=== PATIENT | male | born 1955 | race Caucasian/White ===

== ENCOUNTER 2018-01-16 07:53 | Day surgery (SDC) | payer OTHER, SELFPAY ==
--- NOTE | 2018-01-16 | IMM_PTH ---
PATIENT: MAUREEN KWON LOC: EN U#:[id number] AGE/SX: 62/M ROOM: RE01/16/[address]: Dr. Ananth Cho MD : 1955 BED: DIS: 01/16/2018 SPEC #: [id number] RECD: 01/17/18 14:27 STATUS: KAMILLA REKiya #: [id number] FERDINAND: 01/16/18 00:[address]: Ananth Cho DEPT: IMMUNOHISTOCHEMISTRY RECD BY: Celsa Sepulveda ENTERED: 01/17/18 14:28 SP TYPE: IMMUNO OTHR DR: Tyshawn Pak, JOB TRACER-C Tissues: A - Stomach, NOS Procedures: H Pylori (initial) PHYSICIAN & INSTITUTION [place] [address] SPECIMEN INFORMATION: Tissue Source: A - Antral biopsy Clinical Info: Tapia's Specimen Number: [id number] CPT code: 39806 METHODOLOGY: Deparaffinized sections of prefer/formalin-fixed tissue or PAP/DQ stained slides are incubated with monoclonal/polyclonal antibodies/oligonucleotide probes. Localization is made via biotin free immunoperoxidase method. Appropriate controls are performed and reacted as expected. Results on target cell population are indicated in the following table: RESULTS: ANTIBODY / CLONE RESULT Block A H Pylori (polyclonal) negative These tests were developed and their performance characteristics determined by [facility]. They may not have been cleared or approved by the U.S. Food and Drug Administration. The FDA has determined that such clearance or approval is not necessary. INTERPRETATION: A. Antral biopsy: Negative for Helicobacter pylori organisms. SJ:mat 01/19/18
[2018-01-16 08:32] VITALS: BP 111/75; PULSE 74; RESP 14; TEMP 36.6; O2SAT 96; BMI 28.9
--- NOTE | 2018-01-16 09:00 | GASB_PTH ---
PATIENT: MAUREEN KWON LOC: EN U#:[id number] AGE/SX: 62/M ROOM: RE01/16/[address]: Dr. Ananth Cho MD : 1955 BED: DIS: 01/16/2018 SPEC #: [id number] RECD: 01/16/18 11:39 STATUS: KAMILLA JASMYN #: [id number] FERDINAND: 01/16/18 09:[address]: Ananth Cho DEPT: SURGICAL PATHOLOGY RECD BY: Tyshawn Zimmerman ENTERED: 01/16/18 12:33 SP TYPE: Gastric Bx OTHR DR: Tyshawn Pak, CAR WASHER-C Tissues: A - Gastric mucous membrane B - Gastric mucous membrane Procedures: Special Stain Group II Surgery Specimen Level IV Alcian Blue/PAS (control) HEADER OPER[place] [place] DIAGNOSIS: Tapia's TISSUE SUBMITTED: A - Antral biopsy, B - GE junction biopsy MICROSCOPIC DIAGNOSIS A. Antral biopsy: Mild gastritis. See microscopic description and comment. B. GE junction, biopsy: Fragments of gastroesophageal mucosa with extensive intestinal metaplasia (goblet cell metaplasia), consistent with Tapia's esophagus. Chronic inflammation. Negative for dysplasia. See comment. SJ:mat 01/17/18 COMMENT A. The results of immunohistochemistry for Helicobacter pylori will be reported separately ([id number]). B. Alcian blue/PAS stain with matched control is used in the evaluation of the specimen. MICROSCOPIC DESCRIPTION Slides are reviewed. A. The specimen shows fragments of gastric mucosa with chronic inflammatory cell infiltrates in the lamina propria consisting of lymphocytes and plasma cells, consistent with mild chronic gastritis. GROSS DESCRIPTION A - Received in fixative is one container labeled with the patient's name and designated biopsy gastric antrum. The specimen consists of multiple irregular fragments of light moreno soft tissue that in aggregate measure 0.5 x 0.2 x 0.1 cm. The specimen is totally submitted in one cassette. B - Received in fixative is one container labeled with the patient's name and designated biopsy GE junction. The specimen consists of multiple irregular fragments of light moreno soft tissue that in aggregate measure 1 x 0.5 x 0.1 cm. The specimen is totally submitted in one cassette. / DEVIN:mat 01/16/18 TC:3 CPT: 68987 x2, 10077
[2018-01-16 09:38] VITALS: BP 111/75; BP 80/51; PULSE 66; RESP 16; TEMP 36.2; O2SAT 93
[2018-01-16 09:40] VITALS: BP 111/75; BP 90/57; PULSE 68; RESP 16; O2SAT 94
--- NOTE | 2018-01-16 09:43 | OP.ENDO_ITS ---
Patient Name: Yahir De Luna Procedure Date: 01/16/2018 9:19 AM Date of : 1955 Age: 62 Procedure: Upper GI endoscopy Indications: Surveillance for malignancy due to personal history of Tapia's esophagus Providers: Ananth Cho MD Medicines: Monitored Anesthesia Care Patient Profile: This is a 62 year old male. Refer to note in patient chart for documentation of history and physical. Complications: No immediate complications. Estimated blood loss: Minimal. Procedure: Pre-Anesthesia Assessment: - Prior to the procedure, a History and Physical was performed, and patient medications and allergies were reviewed. The patient's tolerance of previous anesthesia was also reviewed. The risks and benefits of the procedure and the sedation options and risks were discussed with the patient. All questions were answered, and informed consent was obtained. Prior Anticoagulants: The patient has taken no previous anticoagulant or antiplatelet agents. After reviewing the risks and benefits, the patient was deemed in satisfactory condition to undergo the procedure. After obtaining informed consent, the endoscope was passed under direct vision. Throughout the procedure, the patient's blood pressure, pulse, and oxygen saturations were monitored continuously. The gastroscope was introduced through the mouth, and advanced to the second part of duodenum. The upper GI endoscopy was accomplished without difficulty. The patient tolerated the procedure well. Scope In: 9:28:16 AM Scope Out: 9:34:05 AM Total Procedure Duration Time 0 hours 5 minutes 49 seconds Findings: There were esophageal mucosal changes secondary to established Tapia's disease present at the gastroesophageal junction. Mucosa was biopsied with a cold forceps for histology. Biopsies were taken with a cold forceps in the gastric antrum for Helicobacter pylori testing. The exam was otherwise without abnormality. A medium-sized hiatal hernia was present. Impression: - Esophageal mucosal changes secondary to established Tapia's disease. Biopsied. - The examination was otherwise normal. - Biopsies were taken with a cold forceps for Helicobacter pylori testing. Recommendation: - Patient has a contact number available for emergencies. The signs and symptoms of potential delayed complications were discussed with the patient. Return to normal activities tomorrow. Written discharge instructions were provided to the patient. - Resume previous diet. - Continue present medications. - Await pathology results. - Repeat upper endoscopy in 3 years for surveillance. Procedure Code(s): --- Professional --- 91880, Esophagogastroduodenoscopy, flexible, transoral; with biopsy, single or multiple Diagnosis Code(s): --- Professional --- K22.70, Tapia's esophagus without dysplasia CPT copyright 2017 [employer]. All rights reserved. The codes documented in this report are preliminary and upon restaurant crew member review may be revised to meet current compliance requirements. Ananth Cho MD 01/16/2018 9:42:50 AM This report has been signed electronically. Number of Addenda: 0 Note Initiated On: 01/16/2018 9:19 AM
[2018-01-16 09:45] VITALS: BP 111/75; BP 91/55; PULSE 73; RESP 18; O2SAT 93
[2018-01-16 09:50] VITALS: BP 111/75; BP 82/56; PULSE 71; RESP 18; O2SAT 93
[2018-01-16 09:55] VITALS: BP 100/63; BP 111/75; PULSE 72; RESP 18; TEMP 36.8; O2SAT 95
== END 2018-01-16 10:26 | disposition home or self-care (01) ==
LOC: EN 07:54 → AC 07:56
PROVIDERS: Family Provider Nurse Practitioner Family; PCP Nurse Practitioner Family; Referring Provider Surgery; Visit Provider Surgery
PROC: 0DJ08ZZ Inspection of Upper Intestinal Tract, Via Natural or Artificial Opening Endoscopic (ICD-10-PCS; CPT 43235; principal; 2018-01-16 08:55)
DX: K22.70 Barrett's esophagus without dysplasia (principal); K21.9 Gastro-esophageal reflux disease without esophagitis; Z72.0 Tobacco use
CPT/HCPCS: 43239; 88305; 88313; 88342; J7120

== ENCOUNTER → 2018-07-09 13:54 | Outpatient (CLI) | payer OTHER, SELFPAY ==
[2018-07-09 13:37] VITALS: BMI 27.1
--- NOTE | 2018-07-09 13:56 | RAD_ITS ---
STUDY: X-RAY - RIGHT KNEE REASON FOR EXAM: Male, 63 years old. Increased bilateral knee pain. TECHNIQUE: view(s) of the knee. COMPARISON: None. FINDINGS: Normal visualized distal femur. Normal visualized proximal tibia and fibula. Normal proximal tibiofibular articulation. There is mild degenerative arthrosis of the medial femorotibial compartment. Normal lateral femorotibial compartment. There is mild degenerative arthrosis of the patellofemoral articulation. Minimal joint effusion. RAD/Knee 4 or More Views IMPRESSION: Degenerative arthrosis. Minimal joint effusion. Electronically Signed: Lew Irizarry, at 8:32 EDT , Service support ,
--- NOTE | 2018-07-09 13:56 | RAD_ITS ---
STUDY: X-RAY - LEFT KNEE REASON FOR EXAM: Male, 63 years old. Increasing knee pain. TECHNIQUE: 4 view(s) of the knee. COMPARISON: September 17, 2014 FINDINGS: Normal visualized distal femur. Normal visualized proximal tibia and fibula. Normal proximal tibiofibular articulation. There is mild degenerative arthrosis of the medial femorotibial compartment. There is mild degenerative arthrosis of the lateral femorotibial compartment. There is moderate degenerative arthrosis of the patellofemoral articulation. There is lateral patellar tilt. The soft tissue structures are unremarkable. RAD/Knee 4 or More Views IMPRESSION: Interval progression of degenerative changes of the left knee. Electronically Signed: Vera Matias MD at 16:40 EDT Tel , Service support ,
== END ==
PROVIDERS: Family Provider Nurse Practitioner Family; PCP Nurse Practitioner Family; Referring Provider Orthopaedic Surgery; Visit Provider Orthopaedic Surgery
DX: R52 Pain, unspecified (principal)
CPT/HCPCS: 73564

== ENCOUNTER → 2019-03-04 14:24 | Outpatient (CLI) | payer OTHER, SELFPAY ==
[2019-03-04 14:05] VITALS: BMI 27.1
--- NOTE | 2019-03-04 14:24 | RAD_ITS ---
STUDY: X-RAY - RIGHT SHOULDER REASON FOR EXAM: Male, 63 years old. PAIN IN RIGHT SHOULDER TECHNIQUE: 4 view(s) of the shoulder. COMPARISON: None. FINDINGS: Normal glenohumeral articulation. Normal acromioclavicular joint. Normal acromion. There is a small osseous density projecting inferior and posterior to the glenoid Normal humeral head and visualized proximal humerus. The soft tissue structures are unremarkable. Normal visualized pulmonary apex. RAD/Shoulder min 2 Views IMPRESSION: 1. Small osseous density posterior and inferior to the glenoid may represent a developmental ossicle versus sequela of old or new injury versus intra-articular loose body. Electronically Signed: Yahir Gomez MD ([place]) at 8:09 EST , Service support ,
== END ==
PROVIDERS: Family Provider Nurse Practitioner Family; PCP Nurse Practitioner Family; Referring Provider Orthopaedic Surgery; Visit Provider Orthopaedic Surgery
DX: M25.511 Pain in right shoulder (principal)
CPT/HCPCS: 73030

== ENCOUNTER 2020-04-22 12:56 | Outpatient (RCR) | payer MEDICARE, SELFPAY ==
[2019-12-09 13:46] VITALS: BMI 27.1
== END 2020-04-22 23:59 ==
LOC: IMMUN 12:56
PROVIDERS: PCP Nurse Practitioner Family; Referring Provider Family Medicine; Visit Provider Family Medicine
DX: Z23 Encounter for immunization (principal)
CPT/HCPCS: 0011A; 0012A; 91301

== ENCOUNTER → 2020-06-09 16:48 | Outpatient (CLI) | payer MEDICARE, SELFPAY ==
[2020-06-02 14:39] VITALS: BMI 27.8
--- NOTE | 2020-06-09 16:50 | CT_ITS ---
STUDY: CT ABDOMEN AND PELVIS WITH CONTRAST REASON FOR EXAM: Male, 65 years old. Lower abdominal pain. RADIATION DOSAGE (If Supplied By Facility): CTDIvol = ( 16.08 ) mGy, DLP = ( 1075.35 ) mGycm TECHNIQUE: Transaxial images were obtained from the dome of the diaphragm to the symphysis pubis with oral contrast. Oral and amp;amp; IV Readi-CAT and amp;amp; 100mL Isovue-300 was administered. Sagittal and coronal images were reconstructed. Individualized dose optimization techniques were used for this CT. COMPARISON: None. FINDINGS: The visualized lung bases are unremarkable. The visualized portions of the heart are within normal limits. 6 mm cyst is seen in the anterior upper aspect of the right lobe of the liver. Normal gallbladder and extrahepatic biliary system. Normal spleen. Normal pancreas. Normal bilateral adrenal glands. Normal right kidney. Normal left kidney. There is diffuse gastric wall thickening although the stomach is not completely distended. Minimal thickening of the small bowel folds in the jejunal loops in the left upper quadrant. Follow-up is recommended. There are multiple colonic diverticula consistent with diverticulosis. The appendix is visualized and appears normal. There is scattered atherosclerotic calcification of the abdominal aorta, without a demonstrated aneurysm. Normal inferior vena cava. Normal retroperitoneum. Normal urinary bladder. There is enlargement of the prostate gland. It measures 4 cm x 5.3 cm. Evidence of prior right inguinal hernia repair. Small left inguinal hernia containing fat and a nondilated small bowel loop. Normal osseous structures. CT/Abdomen/Pelvis WITH Contrast IMPRESSION: Small left inguinal hernia containing fat and nondistended small bowel. Prominence of the mucosal folds in the jejunal loops in the left upper quadrant. This may represent mild edematous changes. Diffuse gastric wall thickening although the stomach is not completely distended at this time. Electronically Signed: Lew Irizarry MD at 15:37 EDT , Service support ,
[2020-06-09 17:05] LABS: CREATININE FINGERSTICK 1.1 mg/dL (0.70-1.30); EGFR FINGERSTICK > 60.0000 mL/min (>60)
== END ==
PROVIDERS: PCP Nurse Practitioner Family; Referring Provider Surgery; Visit Provider Surgery
DX: R10.9 Unspecified abdominal pain (principal)
CPT/HCPCS: 74177; Q9967

== ENCOUNTER 2020-06-18 09:47 | Day surgery (SDC) | payer MEDICARE, SELFPAY ==
[2020-06-18] VITALS (8 sets, daily range): BP systolic 111–130; BP diastolic 74–86; PULSE 64–92; RESP 16; TEMP 36.3–36.6; O2SAT 92–99; BMI 28.6
--- NOTE | 2020-06-18 07:28 | HP_ITS ---
Intake Intake Visit Reasons: Discuss CT- 06/09 and possible sx Chief Complaint: discuss CT Design Supervisor Required: No Is patient in pain?: Yes Allergies No Known Allergies Allergy (Verified 06/12/20 13:56) Medications calcium citrate 250 mg PO BID 06/02/20 [History Confirmed 06/12/20] meloxicam 15 mg tablet 15 mg PO DAILY 06/02/20 [History Confirmed 06/12/20] multivitamin 1 tablet PO DAILY 06/02/20 [History Confirmed 06/12/20] omeprazole 40 mg capsule,delayed release 40 mg PO DAILY 06/02/20 [History Confirmed 06/12/20] pravastatin 80 mg tablet 80 mg PO DAILY 06/02/20 [History Confirmed 06/12/20] saw palmetto 160 mg capsule 160 mg PO BID 06/02/20 [History Confirmed 06/12/20] PFSH Medical History Barretts esophagus (Acute) Hemorrhoids, internal (Acute) Dysphagia, pharyngoesophageal (Acute) GERD (gastroesophageal reflux disease) (Acute) History of colon polyps (Acute) Surgical History Hx of arthroscopic knee surgery (Acute) History of right inguinal hernia repair (Acute) Family History Mother Arthritis Brother Hypertension High cholesterol Social History (Updated 06/12/20 @ 14:[address] Ananth Cho MD) Smoking Status: Current every day smoker alcohol intake: current alcohol intake frequency: a few times a week substance use type: does not use HPI HPI HPI: MAUREEN KWON is a 65 M who presents to the office today for HPI HPI Surgical H&P: Yes HPI: MAUREEN KWON is a 65 M who presents to the office today for left groin pain. The patient was here last week with lower abdominal pain and left groin pain after feeling a pop after coughing. He had a CT scan which showed left inguinal hernia. He is having no nausea or vomiting. ROS General General: No weight change or fatigue Cardio Cardiovascular: No murmur, pacemaker, heart disease, atrial fibrillation, high blood pressure, heart attack, heart stent, palpitations, shortness of breat with exertion or chest pain Psych Psychiatric: No depression or anxiety Resp Respiratory: No shortness of breath, No sleep apnea, No cough, No COPD, No asthma, No emphysema, No wheezing Gastro Gastrointestinal: No abdominal pain, No nausea or vomiting, No diarrhea, No constipation, No blood in stool, No acid reflux, No hemorrhoids, No ulcers, No gallbladder problem, No black,tarry stools Additional Details: Lower abdominal and left groin pain Floyd Hematologic: No blood thinners Exam Const General: cooperative Orientation: alert, oriented x3 Resp Effort & Inspection: normal respiratory effort Auscultation: clear to auscultation bilaterally Cardio Rate: regular rate Rhythm: regular rhythm Heart Sounds: no murmurs GI Inspection: non-distended Palpation: soft, nontender Assessment & Plan Problems 1. Left inguinal hernia K40.90 Plan The patient had a CT scan which showed left inguinal hernia containing sigmoid colon. The patient has had a history of right inguinal hernia repair in the past. I discussed robotic assisted laparoscopic inguinal hernia repair with mesh with him. I discussed the risks of the procedure including but not limited to bleeding, infection, injury to underlying bowel, spermatic cord injury, testicular ischemia, chronic groin pain. The patient understands the risks and is willing to proceed. Ananth Cho MD Pager: [facility] [address] [place] [address], [address] [place] [address] Office: Coding Level of Care Code Off vis,est,level 3 Diagnoses Left inguinal hernia K40.90 I have re-examined the patient. There are no clinical changes since date of exam.
--- NOTE | 2020-06-18 10:20 | EKG12_ITS ---
Test Reason : PRE OP Blood Pressure : / mmHG Vent. Rate : 069 BPM Atrial Rate : 069 BPM P-R Int : 174 ms QRS Dur : 114 ms QT Int : 422 ms P-R-T Axes : 069 057 026 degrees QTc Int : 452 ms Normal sinus rhythm Normal ECG When compared with ECG of 11-MAR-2009 15:23, No significant change was found Confirmed by KRISHNA AQUINO, ALMA ([id number]), desk editor MIGUEL A CANTU ([id number]) on 06/22/2020 10:14:15 A M Referred By: Ananth Cho Confirmed By:CALVIN KELLER MD
[2020-06-18] MEDS: Lactated Ringers 1,000 ML 100 ML IV (10:27)
[2020-06-18 10:30] LABS: Hematocrit 44.1 % (40-54); Hemoglobin 14.2 g/dL (13.0-16.5); Mean Corp Hgb Conc 32.2 g/dL (32-36); Mean Corpuscular Hgb 30.5 pg (27.0-32.0); Mean Corpuscular Volume 94.6 fL (80-94); Mean Platelet Vol. 12.8 fl (6.2-12.0); Platelet Count 161 K/mm3 (150-450); RBC Distribution Width CV 14.2 % (11.6-14.6); RBC Distribution Width SD 49.4 fl (35.1-43.9); Red Blood Count 4.66 M/mm3 (4.6-6.2); White Blood Count 9.1 K/mm3 (4.4-11.0)
[2020-06-18] MEDS: Cefazolin 2 GM in 0.9% Normal Saline 100 ML IV (12:06)
[2020-06-18] MEDS: Bupivacaine Mpf 0.5% 30 ML VIAL (12:06)
--- NOTE | 2020-06-18 13:39 | PCM.OPRPT ---
Problem List (1) Left inguinal hernia Status: Acute Report of Operation Date of Procedure: 06/18/20 Pre-Operative Diagnosis: Left inguinal hernia Post-Operative Diagnosis: Same Surgery/Procedure Performed:: Robotic assisted laparoscopic left inguinal hernia repair with mesh Estimated Blood Loss (mL): 5 Description of Procedure: Patient was brought back the operating room and general anesthesia was induced. The abdomen was prepped and draped in usual sterile fashion. An incision was made superior to the umbilicus and the fascia was elevated and a Veress needle was placed into the abdomen. A drop test was performed and was normal. The abdomen was insufflated to 15 mmHg. The Veress needle was removed and a port was placed. Camera was placed into the abdomen and it was inspected and there was no sign of injury from entry. The inguinal regions were inspected and the patient had a left indirect inguinal hernia. No hernia on the right. Under direct visualization a right lateral and left lateral 8 mm port replaced. Patient was placed in a Trendelenburg position and the robot was docked. Using electrocautery scissors an incision was made in the peritoneum and dissection was deepened inferiorly until the hernia was identified. The hernia sac was reduced and the surrounding adhesions were taken down. There was a small lipoma which was also reduced. Next a ProGrip mesh was unfolded in the left groin and placed over the hernia. There was good coverage circumferentially. The peritoneum was then reapproximated using a running 3-0V lock suture completely covering the mesh. The instruments were then removed and the robot was undocked and the air was allowed to desufflate from the abdomen. The ports were then removed and the incisions were injected with local anesthetic and closed with interrupted 4-0 Monocryl suture as well as Steri-Strips and bandages. The scrotum was checked at the end of the case and contain both testicles. Patient was taken to PACU in stable condition. Grafts/Implants Used: ProGrip mesh - Admit VTE Documentation VTE Mechan Device Prophylaxis: SCD's
--- NOTE | 2020-06-18 13:56 | PCM.DC.HER ---
Discharge Diet: Light diet - advance as tolerated Discharge Activity: Return to Normal Activity, May Not Drive - for 2-3 days or while taking narcotic pain meds., May Shower - with the bandage in place 1-2 days after surgery. Lifting Restrictions: 20 pounds for 6 weeks. Additional Activity Instructions:: Climbing stairs is fine, walking is encouraged. Sitting in bed may be uncomfortable. Sitting up using your lateral muscles (sitting up sideways) is usually more comfortable. Do not drive, work heavy equipment of sign legal documents for 24 hours. If your hernia repair was an ingunial repair, you may have scrotal swelling, an ice pack and/or athletic support can provide more comfort. Pain medications may cause nausea, you should typically eat light foods as you take your pain medications. Pain medications may also cause constipation. If you have difficulty with this, discuss with your doctor. Call your doctor if your incision/area has: Continuous Slow Oozing, Sudden Increased Bleeding, Increased Pain/ Swelling, Increased Redness, Foul Smelling Discharge Call your doctor if you observe: Fever of 101 or Higher Suture Line Care: Avoid Pulling/Pushing, Avoid Pinching/Bending Change Dressing in (Days):: 3 - Leave steri-strips for 1 week. May protect with a guaze bandaid. Cleanse incision/area with: Keep Dressing Clean & Dry Allergies/Adverse Reactions: Allergies No Known Allergies Allergy (Verified 06/18/20 10:27) Medications to take at Discharge calcium citrate 250 mg PO DAILY 06/02/20 meloxicam 15 mg tablet 15 mg PO DAILY 06/02/20 multivitamin 1 tablet PO DAILY 06/02/20 omeprazole 40 mg capsule,delayed release 40 mg PO DAILY 06/02/20 pravastatin 80 mg tablet 80 mg PO DAILY 06/02/20 saw palmetto 160 mg capsule 160 mg PO DAILY 06/02/20 Oxycodone HCl/Acetaminophen [Percocet 5-325 mg Tablet] 1 tab PO Q6H PRN PRN 5 Days #15 tablet 06/18/20 The following prescriptions were given: Oxycodone HCl/Acetaminophen [Percocet 5-325 mg Tablet] 1 tab PO Q6H PRN PRN 5 Days #15 tablet PRN Reason: Pain Score 4-10/10 Transmission Status: Sent to [facility] Primary Care Physician: Tyshawn Pak HEALTH AND WELLNESS SALES CONSULTANT, HEALTH AND WELLNESS SALES CONSULTANT-C [Primary Care Provider] - Test Results: Test results from this visit will be discussed in further detail at your follow-up appointment, if applicable. Please Follow Up With: Ananth Cho MD When: Please call to schedule 2 week follow up appointment. [phone]
[2020-06-18] MEDS: Acetaminophen 325 MG Tablet PO (14:56)
[2020-06-18] MEDS: oxyCODONE 5 MG Tablet PO (14:56)
== END 2020-06-18 15:41 | disposition home or self-care (01) ==
LOC: SDC 09:47 → AC 09:48
PROVIDERS: Anesthesiology; PCP Nurse Practitioner Family; Referring Provider Surgery; Visit Provider Surgery
PROC: 0YQ64ZZ Repair Left Inguinal Region, Percutaneous Endoscopic Approach (ICD-10-PCS; CPT 49650; principal; 2020-06-18 11:15)
DX: K40.90 Unilateral inguinal hernia, without obstruction or gangrene, not specified as recurrent (principal); F17.200 Nicotine dependence, unspecified, uncomplicated; Z79.1 Long term (current) use of non-steroidal anti-inflammatories (NSAID)
CPT/HCPCS: 00840; 49650; 85027; 93005; J7120; J2405

== ENCOUNTER 2022-03-23 15:30 | Outpatient (RCR) | payer MEDICARE, SELFPAY ==
--- NOTE | 2022-03-02 17:23 | HP.PTEVAL_ITS ---
Patient's Visit Information MAUREEN KWON is a 66 year old M referred to Physical Therapy by Dr. Maxim Carreno DO with a diagnosis of Bilateral Knee OA. Date of Evaluation: 03/02/22 Physical Therapist: Raven Yee DPT - Visit Plan Frequency: 2x /Week Duration: 3 Weeks Plan: Focus on LE and core strength/stabilization- HEP program for gym progression. 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 He saw Dr. Washington who took more x-rays- gave him a right forest pathology associate professor brace and sent him to PT. He is not ready for TKR as this time. He reports that the pain comes and goes. When he is working he can sit down when he needs to and rest. Pain is alleviated by rest, hot tub and ice. Best: 0/10 Worst: 5/10 Agg: being on his feet, jamming out with his rock band. He feels the pain is progressively getting worse. He was working out in the gym but he has not been back since his hernia. Sleep: not disturbed. Planning to have some sort of Gel Injections through Dr. Washington not cortisone PMHx/Meds: in chart from ortho visit Jan 2022. - Objective Posture: fair throughout. Gait: slightly antalgic dec stance on right LE- foot flat progression- no AD. Stairs: asc: 8 recip with no HR- desc 8 single hand rail; poor control. HR/TR: able. SLS: 5 sec then LOB bilateral. ROM: 0-115 degrees bilateral. Strength: Core: fair, Hip: 4-/5 throughout, Knee: 4+/5, Ankle: 5/5. Flex: HS: severe, Gastroc: moderate - Balance/Special Test Scores Lower Extremity Functional Score: 52 - Goals Goal 1:: Patient will be I with HEP and progression Goal Time Frame: 4-6 Weeks Goal 2:: Patient will ambulate >300 feet with a normalized gait pattern Goal Time Frame: 4-6 Weeks Goal 3:: Patient will report 80% improvement Goal Time Frame: 4-6 Weeks - Rehabilitation Potential Physical Therapy Diagnosis: Patient presents with hypomobility- he has decreased LE and core strength/stabilization, proprioception, flex and muscular endurance leading to abnormal gait pattern and increased pain with ADL's. Rehabilitation Potential: Good - Anticipated Interventions Patient/Client Instruction: Educate patient on: Benefits of Fitness Program Therapeutic Exercise to Include: Strength training, Endurance training, Balance training, Coordination, Agility training, Body mechanics, Postural training, Flexibilty training, Gait and locomotor training, Neuromotor development, Dynamic Lumbar Stabilization, Scapular Strength/Stabilization For the Purpose of:: To improve muscle performance and motor function TENS: Yes Cryotherapy (ice pack, ice massage): Yes Thermo therapy (hot pack): Yes Ultrasound (thermal/non thermal): Yes Thank you for the opportunity to evaluate your patient. For Medicare and Medicare HMO plans, please review the plan of care and approve it. It will need to be FAXED BACK to us at [phone] for Medicare purposes. For Medicare only, by signing this I certify the plan of care. Please let me know if there are questions or concerns regarding this plan of care. Physician Signature: Date:
--- NOTE | 2022-03-23 15:58 | HP.PTDCSUM ---
It has been my pleasure to treat MAUREEN KWON referred by Dr. Maxim Carreno DO, with the diagnosis of Bilateral Knee OA for a total of 6 visit(s). Discharge Date: Please see the following information for a summary of their discharge status. Subjective: Patient reports that after he is done doing these exercises he feels better- he does better when he is moving around. Plans to continue at [facility]. R knee Pain Intensity (Out of 10): 3 % Improvement: 50 Objective/Function: Posture: fair throughout. Gait: slightly antalgic dec stance on right LE- foot flat progression- no AD. Stairs: asc: 8 recip with no HR- desc 8 single hand rail; poor control. HR/TR: able. SLS: 8sec then LOB bilateral. ROM: 0-115 degrees bilateral. Strength: Core: fair, Hip: 4+/5 throughout, Knee: 5/5, Ankle: 5/5. Flex: HS: severe, Gastroc: moderate Goal 1:: Patient will be I with HEP and progression Goal Progress: Goal Met Goal 2:: Patient will ambulate >300 feet with a normalized gait pattern Goal Progress: Progressing Goal 3:: Patient will report 80% improvement Goal Progress: Progressing Plan: 03/23/22: Discharge to I HEP- gave exercises for [facility]. IE:Focus on LE and core strength/stabilization- HEP program for gym progression. HEP Given IE: HS stretch, sit to stand and SLS If there are questions or concerns regarding this patient's physical therapy, please feel free to call me at [phone]. Thank you for the referral of this patient. Sincerely, Raven Yee, GRACIAT Balance/Gait/Functional tests - Balance/Special Test Scores Lower Extremity Functional Score: 56 Tug Test: <10 sec.=free mobile
== END 2022-03-23 19:00 | disposition home or self-care (01) ==
LOC: PT 15:30
PROVIDERS: PCP Nurse Practitioner Family; Referring Provider Orthopaedic Surgery; Visit Provider Orthopaedic Surgery
DX: M17.0 Bilateral primary osteoarthritis of knee (principal)
CPT/HCPCS: 97110; 97162; 97164

== ENCOUNTER 2022-10-10 09:25 | Day surgery (SDC) | payer MEDICARE, SELFPAY ==
--- NOTE | 2022-10-04 12:41 | EKG12_ITS ---
Test Reason : PRE-OP Blood Pressure : / mmHG Vent. Rate : 090 BPM Atrial Rate : 090 BPM P-R Int : 126 ms QRS Dur : 104 ms QT Int : 388 ms P-R-T Axes : 059 059 043 degrees QTc Int : 474 ms Normal sinus rhythm Normal ECG Confirmed by SELWYN AQUINO, PERRY ([id number]), videotape editor MIGUEL A CANTU ([id number]) on 10/05/2022 8:53:59 AM Referred By: Ananth Cho Confirmed By:PERRY SAMANO MD
[2022-10-10 10:08] VITALS: BP 115/87; PULSE 63; RESP 16; TEMP 36.3; O2SAT 100; BMI 28.6
[2022-10-10] MEDS: Lactated Ringers 1,000 ML 15 ML IV ×2 (10:16→12:47)
--- NOTE | 2022-10-10 10:20 | PCM.HP.BLA ---
History and Physical Date of Admission: 10/10/22 Intake Vital Signs 02/14/2214:36 08/26/2313:50 Height 5 ft 11 in 5 ft 11 in Weight: 215 lb 215 lb 6 oz BMI 29.9 30.0 BP 131/81 H Blood Pressure Location Rt brachial Position Sitting Respiration 17 Pulse 75 Pulse Source Monitor Temp 97.8 F Temp Source Temporal Pulse Oximetry (%) 95 Oxygen Delivery Method room air Intake Visit Reasons: Incisional Hernia ? Chief Complaint: incisional hernia Is patient in pain?: No Allergies No Known Allergies Allergy (Verified 08/26/22 14:53) Medications calcium citrate 250 mg PO DAILY 06/02/20 [History Confirmed 08/26/22] meloxicam 15 mg tablet 15 mg PO DAILY 06/02/20 [History Confirmed 08/26/22] multivitamin 1 tablet PO DAILY 06/02/20 [History Confirmed 08/26/22] omeprazole 40 mg capsule,delayed release 40 mg PO DAILY 06/02/20 [History Confirmed 08/26/22] saw palmetto 160 mg capsule 160 mg PO DAILY 06/02/20 [History Confirmed 08/26/22] lovastatin 40 mg tablet tablet PO 02/14/22 [History Confirmed 08/26/22] sodium hyaluronate (viscosup) 16.8 mg/2 mL intra-articular syringe (Gelsyn-3) 16.8 mg (2 mL) intra-articular QWEEK #12 mL 07/07/22 [Rx Confirmed 08/26/22] PFSH Medical History (Updated 08/26/22 @ 17:[address] Ananth Cho MD) Barretts esophagus Dysphagia, pharyngoesophageal GERD (gastroesophageal reflux disease) Hemorrhoids, internal History of colon polyps Melanoma Surgical History History of right inguinal hernia repair Hx of arthroscopic knee surgery S/P left inguinal hernia repair Family History Mother ArthritisBrother Hypertension High cholesterol Social History Smoking Status: Current every day smoker alcohol intake: current alcohol intake frequency: a few times a week substance use type: does not use HPI HPI HPI: Patient is a 67-year-old male here with bulging at his incision site. Patient reports has been having since he had COVID about 5 months ago. He said he was coughing a lot now he feels bulging and pain. ROS General General: No weight change, appetite, fatigue, colon cancer, breast cancer or weakness HEENT HEENT: No difficulty swallowing, eye injury, eye surgery, swollen glands or hoarseness Endo Endocrine: No thyroid disease, diabetes mellitus, thyroid cancer, Hair loss, heat intolerance or cold intolerance Skin Skin: No rash or changing moles Musc Musculoskeletal: No back problems, arthritis, rheumatoid arthritis, gout or joint pain Cardio Cardiovascular: No murmur, pacemaker, heart disease, atrial fibrillation, high blood pressure, heart attack, heart stent, palpitations, shortness of breat with exertion or chest pain Psych Psychiatric: No depression, anxiety or hearing voices Resp Respiratory: No shortness of breath, No sleep apnea, No cough, No COPD, No asthma, No emphysema and No wheezing Gastro Gastrointestinal: No abdominal pain, No nausea or vomiting, No diarrhea, No constipation, No blood in stool, Yes acid reflux, Yes hemorrhoids, No ulcers, No gallbladder problem and No black,tarry stools Floyd Hematologic: No blood thinners, No blood disorders, No bleeding, No anemia and No blood clots Neuro Neurologic: No system reviewed and no additional complaints, except as documented, No as per HPI, No abnormal gait, No abnormal hearing, No abnormal movements, No abnormal speech, No behavioral changes, No burning sensations, No confusion, No convulsions, No disequilibrium, No dizziness, No localized weakness, No frequent falls, No headache(s), No lack of coordination, No loss of vision, No memory loss, No numbness, No other visual disturbances, No radicular pain, No restless legs, No sensory deficit, No syncope, No tingling, No tremor(s), No weakness and No other Exam Const General: cooperative Orientation: alert and oriented x3 HENMT Head: normal to inspection Neck Neck: normal visual inspection and full ROM Chest Chest palpation & inspection: normal inspection of the chest Resp Effort & Inspection: normal respiratory effort Auscultation: clear to auscultation bilaterally Cardio Rate: regular rate Rhythm: regular rhythm GI Inspection: non-distended Palpation: soft, hernia ventral and nontender Skin General: no rashes or lesions noted Neuro General: patient alert and patient oriented x3 Extrem General: full ROM Psych Appearance: grossly normal Mental Status: mental status grossly normal Assessment and Plan Assessment and Plan (1) Ventral hernia: Status: Acute Qualifiers: Obstruction and gangrene presence: without obstruction or gangrene Qualified Code(s): K43.9 - Ventral hernia without obstruction or gangrene Plan: The patient has a small ventral hernia at his incision site from his robotic inguinal hernia. It is very small containing preperitoneal fat. It is reducible. I discussed repairing this with sutures if it is smaller than [address] cm [address] will [address] a small mesh if it seems larger than a centimeter. I discussed the risks of bleeding and infection and the patient agrees to proceed. Ananth Cho MD Pager: [facility] [address] [place] [address], [address] [place] [address] Office: I have examined the patient and the H&P has been reviewed. There are no clinical changes since date of exam.
--- NOTE | 2022-10-10 10:45 | HERN_PTH ---
PATIENT: MAUEREN KWON LOC: [place] U#:[id number] AGE/SX: 67/M ROOM: RE10/10/[address]: Dr. Ananth Cho MD : 1955 BED: DIS: 10/10/2022 SPEC #: [id number] RECD: 10/10/22 15:51 STATUS: KAMILLA JASMYN #: [id number] FERDINAND: 10/10/22 10:[address]: Ananth Cho DEPT: SURGICAL PATHOLOGY RECD BY: Faviola Rodriguez ENTERED: 10/11/22 07:15 SP TYPE: Hernia OTHR DR: Tyshawn Pak, UBALDO-Gurwinder Tissues: HERNIA Procedures: Surgery Specimen Level II HEADER OPERATION: Ventral hernia repair with mesh PRE-OP DIAGNOSIS: Ventral hernia TISSUE SUBMITTED: Ventral hernia sac MICROSCOPIC DIAGNOSIS Ventral hernia sac, herniorrhaphy: Fibrosis and minimal chronic inflammation. AM:mat 10/12/2022 MICROSCOPIC DESCRIPTION Slides are reviewed. GROSS DESCRIPTION Received in fixative is one container labeled with the patient's name and designated ventral hernia sac. The specimen consists of an irregular fragment of moreno-yellow fibrofatty tissue measuring 3.0 x 2.0 x 1.5 cm. The specimen is serially sectioned and totally submitted in one cassette. / AM:mat 10/11/2022 TC:3 CPT: 04628
[2022-10-10] MEDS: Cefazolin 2 GM in 0.9% Normal Saline 100 ML IV (11:17)
[2022-10-10] MEDS: Lidocaine 1%/Epi 1:100 (30ml) 30 ML VIAL (11:50)
[2022-10-10 12:09] VITALS: BP 115/87; BP 131/92; PULSE 96; RESP 16; TEMP 36.9; O2SAT 90
[2022-10-10 12:15] VITALS: BP 115/87; BP 129/83; PULSE 91; RESP 16; O2SAT 97
[2022-10-10 12:30] VITALS: BP 115/87; BP 125/88; PULSE 78; RESP 16; O2SAT 100
--- NOTE | 2022-10-10 12:40 | OP.PCM_ITS ---
Report of Operation Date of Procedure: 10/10/22 Pre-Operative Diagnosis: Small ventral hernia Post-Operative Diagnosis: Incisional ventral hernia, 1 cm Surgery/Procedure Performed:: Ventral hernia repair with mesh Type of Anesthesia: General/Regional Specimen's removed: Hernia sac Estimated Blood Loss (mL): 5 Description of Procedure: Patient was brought back to the operating room and general anesthesia was induced. The abdomen was prepped and draped in usual sterile fashion. Midline incision was injected with local anesthetic and then incised. The hernia sac w as identified and excised. The fat contents were reduced. The fascia was elevated and the preperitoneal space was dissected to allow for mesh placement. The open area of the peritoneum was closed with 3-0 Vicryl suture. Next a small Ventralex ST mesh was placed in the preperitoneal space and sutured to the anterior fascia using 2-0 PDS suture. The area was irrigated and suctioned dry and the fascia was reapproximated in a transverse fashion using interrupted 0 Nurolon sutures. The subcutaneous tissue was irrigated and suctioned dry and the skin was closed with interrupted 4-0 Monocryl sutures. Steri-Strips and bandages were applied. Patient was taken to PACU in stable condition. Grafts/Implants Used: Small Ventralex mesh Admit VTE Documentation VTE Mechan Device Prophylaxis: SCD's
--- NOTE | 2022-10-10 12:41 | EX.PCM.DISCH ---
Discharge Instructions Procedure Hernia Diet Discharge Diet: Light diet - advance as tolerated Activity Discharge Activity: May Not Drive (for 2-3 days or while taking narcotic pain meds.) and May Shower (with the bandage in place 1-2 days after surgery.) Lifting Restrictions: 20 pounds for 2 weeks. Additional Activity Instructions:: Climbing stairs is fine, walking is encouraged. Sitting in bed may be uncomfortable. Sitting up using your lateral muscles (sitting up sideways) is usually more comfortable. Do not drive, work heavy equipment of sign legal documents for 24 hours. Pain medications may cause nausea, you should typically eat light foods as you take your pain medications. Pain medications may also cause constipation. If you have difficulty with this, discuss with your doctor. Dressing / Incision Call your doctor if your incision/area has: Continuous Slow Oozing, Sudden Increased Bleeding, Increased Pain/ Swelling, Increased Redness and Foul Smelling Discharge Call your doctor if you observe: Fever of 101 or Higher Suture Line Care: Avoid Pulling/Pushing and Avoid Pinching/Bending Remove Dressing in: 2 days (Remove clear bandages in 2 days, remove Steri-Strips in 7 to 10 days.) Cleanse incision/area with: Soap & Water Follow Up Care Please Follow Up With: Ananth Cho MD When: Please call to schedule 2 week follow up appointment. [phone] Test Results: Test results from this visit will be discussed in further detail at your follow-up appointment, if applicable. Discharge Plan Admission Attending Provider: Ananth Cho Primary Care Provider: Tyshawn Pak NP Discharge Orders/Prescriptions Prescriptions: New oxycodone-acetaminophen [Percocet] 5-325 mg tablet 1 tab PO Q4H PRN (Reason: pain) 5 Days Qty: 10 0RF No Action calcium citrate 250 mg calcium tablet 250 mg PO DAILY meloxicam 15 mg tablet 15 mg PO DAILY multivitamin Tablet 1 tablet PO DAILY omeprazole 40 mg capsule,delayed release(DR/EC) 40 mg PO DAILY saw palmetto 160 mg capsule 160 mg PO DAILY Rx Instructions: give with meal/snack lovastatin 40 mg tablet 40 mg PO QHS Referrals / Follow Up: Tyshawn Pak NP, LONG LINES OPERATOR-C [Primary Care Provider] - Disposition Disposition (needs filled in before D/C Order can be placed): Home, Self Care
[2022-10-10 12:44] VITALS: BP 115/87; BP 127/81; PULSE 67; RESP 18; TEMP 36.4; O2SAT 98
[2022-10-10] MEDS: Acetaminophen 325 MG Tablet 650 MG PO (13:17)
[2022-10-10 14:29] VITALS: BP 115/87; BP 135/80; PULSE 69; RESP 16; TEMP 36.3; O2SAT 92
[2022-10-10] MEDS: Tamsulosin HCl 0.4 MG Capsule 0.8 MG PO (14:33)
== END 2022-10-10 14:40 | disposition home or self-care (01) ==
LOC: SDC 09:26 → AC 09:26
PROVIDERS: PCP Nurse Practitioner Family; Referring Provider Surgery; Visit Provider Surgery
PROC: (CPT 49591; principal; 2022-10-10 10:30)
DX: K43.1 Incisional hernia with gangrene (principal); F17.200 Nicotine dependence, unspecified, uncomplicated; Z86.010 Personal history of colon polyps; Z87.19 Personal history of other diseases of the digestive system; K21.9 Gastro-esophageal reflux disease without esophagitis; Z86.16 Personal history of COVID-19
CPT/HCPCS: 49591; 88302; 93005; J7120; J2405

== ENCOUNTER 2023-09-11 09:18 | Day surgery (SDC) | payer MEDICARE, SELFPAY ==
--- NOTE | 2023-09-11 | IMM_PTH ---
PATIENT: MAUREEN KWON LOC: [place] U#:[id number] AGE/SX: 68/M ROOM: RE09/11/[address]: Dr. Ananth Cho MD : 1955 BED: DIS: 09/11/2023 SPEC #: [id number] RECD: 09/12/23 10:39 STATUS: KAMILLA REKiya #: [id number] FERDINAND: 09/11/23 00:[address]: Ananth Cho DEPT: IMMUNOHISTOCHEMISTRY RECD BY: Manuelito Moran ENTERED: 09/12/23 10:40 SP TYPE: IMMUNO OTHR DR: Tyshawn Pak, ENVIRONMENTAL SERVICE AIDE-C Tissues: Gastric mucous membrane Procedures: P53 (initial) KI-67 (add) PHYSICIAN & [place] [id number] SPECIMEN INFORMATION: Tissue Source: Gastroesophageal junction biopsy Clinical Info: Tapia's esophagus Specimen Number: [id number] CPT code: 29452,12061 METHODOLOGY: Deparaffinized sections of prefer/formalin-fixed tissue or PAP/DQ stained slides are incubated with monoclonal/polyclonal antibodies/oligonucleotide probes. Localization is made via biotin free immunoperoxidase method. Appropriate controls are performed and reacted as expected. Results on target cell population are indicated in the following table: RESULTS: ANTIBODY / CLONE RESULT P53 (DO-7) negative (null pattern) Ki-67 (30-9) positive, very low These tests were developed and their performance characteristics determined by [facility]. They may not have been cleared or approved by the U.S. Food and Drug Administration. The FDA has determined that such clearance or approval is not necessary. The above immunohistochemical/dualISH markers are ordered and reviewed by the Pathologist. INTERPRETATION: Gastroesophageal junction, biopsy: Negative for dysplasia. DEVIN/ 09/13/2023
--- NOTE | 2023-09-11 09:28 | PCM.PRE.AN2 ---
ASA Classification* ASA Classification ASA Classification: 2 Assessment & Plan Anesthesia* Anesthesia Assessment Anesthesia Assessment: Discussed sedation and/or anesthesia options, risks, benefits, and alternatives with patient/parents/legal guardian/POA. Questions invited. The patient/parents/legal guardian/POA seems to understand and agrees to proceed with anesthesia plan. Reviewed the physical assessment, medical history, allergy history and patient home medications list prior to surgery/procedure/anesthetic and documented any changes. Performed airway and anesthesia risk assessments. Anesthesia Type Anesthesia Type: MAC (see written pre anesthesia record for full assessment) Anesthesia Focused Assessment* Airway Assessment Mouth opens: >3 cm Mallampati Score: II Focused Labs Anesthesia Preop lab: CBC WBC 9.1 K/mm3 (4.4-11.0) 06/18/20 10:15 RBC 4.66 M/mm3 (4.6-6.2) 06/18/20 10:15 Hgb 14.2 g/dL (13.0-16.5) 06/18/20 10:15 Hct 44.1 % (40-54) 06/18/20 10:15 Plt Count 161 K/mm3 (150-450) 06/18/20 10:15 CHEMISTRY COAG Pre-Assessment Diagnosis/Proposed Procedure Planned Operative Procedure(s): EGD Anesthesia History Anesthesia History - recreation officer: Anesthesia History - recreation officer Hx Hospitalization No 09/04/23 15:42 Any Problems With Anesthesia No 09/04/23 15:42 Cholinesterase deficiency No 09/04/23 15:42 You/Your Family Experience No 09/04/23 15:42 fever (hyperthermia) with Relationship Recent Exposure to Contagious No 10/10/22 10:08 Disease Does patient have nerve No 09/04/23 15:42 stimulator Patient instructed to have device shut off --Does patient have Pacemaker or ICD? When Was Last Pacemaker Check QUESTION #4 FULL TEXT: You/Your Family Experience fever (hyperthermia) with Anesthesia Last Oral Intake Last Oral intake: Last Oral Intake NPO since Meds taken in AM with sips of water? Meds patient instructed to take am of surgery PONV PONV - recreation officer: PONV - recreation officer Female No 09/04/23 15:42 HX of Motion Sickness No 09/04/23 15:42 HX of N/V After Surgery No 09/04/23 15:42 Non-Smoker No 09/04/23 15:42 Duration of Surgery greater No 09/04/23 15:42 than 60 minutes Number of Risk Factors PONV Score Height & Weight Height & Weight: Anesthesia: Height & Weight Height 6 ft 06/29/23 13:18 Respiratory Assessment Respiratory Assessment - recreation officer: Respiratory Tract Infection Hx - recreation officer Hx Respiratory Tract Infection No 09/04/23 15:42 STOP Sleep Apnea STOP Sleep Apnea - recreation officer: STOP Sleep Apnea - recreation officer Hx Hypertension No 09/04/23 15:42 Hx Sleep Apnea No 09/04/23 15:42 CPAP BIPAP Do you snore loudly (louder Yes 09/04/23 15:42 than talking or can be heard Do you often feel tired/ No 09/04/23 15:42 fatigued/ sleepy during daytime? Has anyone observed you stop No 09/04/23 15:42 breathing during sleep? STOP Results Negative 09/04/23 15:42 QUESTION #5 FULL TEXT : Do you snore loudly (louder than talking or can be heard through closed doors)? Tobacco Use History Tobacco Use History - recreation officer: Tobacco Use History - recreation officer Tobacco Use Smoking Status Current every day smoker 09/04/23 15:42 Hx Tobacco Use Yes 09/04/23 15:42 Years Smoking 50 09/04/23 15:42 Packs Smoked per Day 0.5 09/04/23 15:42 Smoking Cessation Date was within the last 15 years Hx Smoking Cessation Date Hx Smoking Cessation No 09/04/23 15:42 Counseling Hematologic Medial History Hematologic Hx - recreation officer: Hematologic Medical Hx - clinical documentation spec Hx of Blood Transfusion No 09/04/23 15:42 Hx of Transfusion in last 3 No 09/04/23 15:42 Months Date of Last Transfusion (if within last 3 months) Ever experience any problems No 09/04/23 15:42 with transfusion(s)? Specify any problems Hx of Preganancy in last 3 N/A 09/04/23 15:42 Months Nurse Filling Out Transfusion SFRANTZ 09/04/23 15:42 & Questions: Date: 09/04/23 09/04/23 15:42 Time: 15:46 09/04/23 15:42 Patient unable to answer at this time (ie. confused, unrespo /Reproduction History /Reproductive History - recreation officer: /Reproductive Hx- recreation officer Hx Now No 09/04/23 15:42 Gestational Age (in weeks): EDC: Hx Hx Para Hx Section SAB No 09/04/23 15:42 Active Medications Active Medications: Current Medications Generic Name Dose Route Start Last Admin Trade Name Freq PRN Reason Stop Dose Admin Lactated Ringer's 1,000 mls @ 15 mls/hr 09/11/23 09:30 IV .Q48H GEOVANNY PFSH Medical History Wears glasses Cancer Alcohol use History of steroid therapy Arthritis High cholesterol Back pain Gastric reflux Smoker Melanoma Barretts esophagus Hemorrhoids, internal Dysphagia, pharyngoesophageal GERD (gastroesophageal reflux disease) History of colon polyps Home Medications ?Medication ?Instructions ?Recorded ?Last Taken ?Type calcium citrate 250 mg PO DAILY 06/02/20 Unknown History meloxicam 15 mg tablet 15 mg PO DAILY 06/02/20 Unknown History omeprazole 40 mg capsule,delayed 40 mg PO DAILY 06/02/20 Unknown History release saw palmetto 160 mg capsule 160 mg PO DAILY 06/02/20 Unknown History nootropic brain supplement 1 tab PO DAILY supplement 09/04/23 Unknown History rosuvastatin 20 mg tablet 20 mg PO DAILY 09/04/23 Unknown History vitamin B complex 1 tab PO DAILY 09/04/23 Unknown History Allergy/AdvReac Type Severity Reaction Status Date / Time No Known Allergies Allergy Verified 09/04/23 15:23 Family History Mother Arthritis Brother Hypertension High cholesterol Surgical History History of ventral hernia repair History of esophagogastroduodenoscopy (EGD) S/P left inguinal hernia repair Hx of arthroscopic knee surgery History of right inguinal hernia repair Social History Smoking Status: Current every day smoker tobacco type: cigarettes alcohol intake: current alcohol intake frequency: a few times a week substance use type: does not use Review of Systems (Anesthesia) ROS Narrative System reviewed and no additional complaints, except as documented.
[2023-09-11 09:35] VITALS: BP 125/93; PULSE 69; RESP 16; TEMP 36.2; O2SAT 98; BMI 28.4
[2023-09-11] MEDS: Lactated Ringers 1,000 ML 15 ML IV (09:37)
--- NOTE | 2023-09-11 10:18 | PCM.HP.BLA ---
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 Operator Tool Required: No Is patient in pain?: No Allergies No Known Allergies Allergy (Verified 06/29/23 13:18) Medications calcium citrate 250 mg PO DAILY 06/02/20 [History Confirmed 06/29/23] meloxicam 15 mg tablet 15 mg PO DAILY 06/02/20 [History Confirmed 06/29/23] multivitamin 1 tablet PO DAILY 06/02/20 [History Confirmed 06/29/23] omeprazole 40 mg capsule,delayed release 40 mg PO DAILY 06/02/20 [History Confirmed 06/29/23] saw palmetto 160 mg capsule 160 mg PO DAILY 06/02/20 [History Confirmed 06/29/23] lovastatin 40 mg tablet 40 mg PO QHS 02/14/22 [History Confirmed 06/29/23] PFSH Medical History Alcohol use Arthritis Back pain Barretts esophagus Cancer Dysphagia, pharyngoesophageal Gastric reflux GERD (gastroesophageal reflux disease) Hemorrhoids, internal High cholesterol History of colon polyps History of steroid therapy Melanoma Smoker Wears glasses Surgical History History of esophagogastroduodenoscopy (EGD) History of right inguinal hernia repair History of ventral hernia repair Hx of arthroscopic knee surgery S/P left inguinal hernia repair Family History Mother ArthritisBrother Hypertension High cholesterol Social History Smoking Status: Current every day smoker tobacco type: cigarettes alcohol intake: current alcohol intake frequency: a few times a week substance use type: does not use HPI HPI HPI: Patient is a 68-year-old male here following up for Tapia's esophagus. His last EGD was 6 years ago. He denies reflux or abdominal pain. ROS General General: No weight change, appetite, fatigue, colon cancer, breast cancer or weakness HEENT HEENT: No difficulty swallowing, eye injury, eye surgery, swollen glands or hoarseness Endo Endocrine: No thyroid disease, diabetes mellitus, thyroid cancer, Hair loss, heat intolerance or cold intolerance Skin Skin: No rash or changing moles Musc Musculoskeletal: No back problems, arthritis, rheumatoid arthritis, gout or joint pain Cardio Cardiovascular: No murmur, pacemaker, heart disease, atrial fibrillation, high blood pressure, heart attack, heart stent, palpitations, shortness of breat with exertion or chest pain Psych Psychiatric: No depression, anxiety or hearing voices Resp Respiratory: No shortness of breath, No sleep apnea, No cough, No COPD, No asthma, No emphysema and No wheezing Gastro Gastrointestinal: No abdominal pain, No nausea or vomiting, No diarrhea, No constipation, No blood in stool, Yes acid reflux, Yes hemorrhoids, No ulcers, No gallbladder problem and No black,tarry stools Floyd Hematologic: No blood thinners, No blood disorders, No bleeding, No anemia and No blood clots Neuro Neurologic: No system reviewed and no additional complaints, except as documented, No as per HPI, No abnormal gait, No abnormal hearing, No abnormal movements, No abnormal speech, No behavioral changes, No burning sensations, No confusion, No convulsions, No disequilibrium, No dizziness, No localized weakness, No frequent falls, No headache(s), No lack of coordination, No loss of vision, No memory loss, No numbness, No other visual disturbances, No radicular pain, No restless legs, No sensory deficit, No syncope, No tingling, No tremor(s), No weakness and No other Exam Const General: cooperative Orientation: alert and oriented x3 [facility] Head: normal to inspection Neck Neck: normal visual inspection and full ROM Chest Chest palpation & inspection: normal inspection of the chest Resp Effort & Inspection: normal respiratory effort Auscultation: clear to auscultation bilaterally Cardio Rate: regular rate Rhythm: regular rhythm GI Inspection: non-distended Palpation: soft and nontender Skin General: no rashes or lesions noted Neuro General: patient alert and patient oriented x3 Extrem General: full ROM Psych Appearance: grossly normal Mental Status: mental status grossly normal Assessment and Plan Assessment and Plan (1) Barretts esophagus: Status: Acute Qualifiers: Tapia's esophagus type: without dysplasia Qualified Code(s): K22.70 - Tapia's esophagus without dysplasia Plan: Patient is due for surveillance for his Tapia's esophagus. Plan for EGD with biopsies. I explained endoscopy in detail to the patient. I explained the risks including but not limited to stroke or heart attack with anesthesia, perforation of the GI tract, bleeding, infection. I explained that any of these could necessitate further emergency surgery. The patient understands and all questions were answered sufficiently. The patient wishes to proceed with procedure. Ananht Cho MD Pager: [facility] [address] [place] [address] [address] [place] [address] Office: I have examined the patient and the H&P has been reviewed. There are no clinical changes since date of exam.
--- NOTE | 2023-09-11 10:30 | EGD_PTH ---
PATIENT: MAUREEN KWON LOC: EN U#:[id number] AGE/SX: 68/M ROOM: RE09/11/[address]: Dr. Ananth Cho MD : 1955 BED: DIS: 09/11/2023 SPEC #: [id number] RECD: 09/11/23 13:24 STATUS: KAMILLA JASMYN #: [id number] FERDINAND: 09/11/23 10:[address]: Ananth Cho DEPT: SURGICAL PATHOLOGY RECD BY: Otis Gonsales ENTERED: 09/11/23 13:35 SP TYPE: EGD BIOPSY OT DR: Tyshawn Pak, HOG KILLER-C Tissues: Gastric mucous membrane Procedures: Special Stain Group I Surgery Specimen Level IV Alcian Blue/PAS (control) HEADER OPERATION: EGD, biopsy PRE-OP DIAGNOSIS: Tapia's esophagus TISSUE SUBMITTED: Gastroesophageal junction biopsy MICROSCOPIC DIAGNOSIS Gastroesophageal junction, biopsy: Fragments of gastroesophageal mucosa with focal intestinal metaplasia (goblet cell metaplasia), consistent with Tapia's esophagus. Focal chronic inflammation. Negative for dysplasia. See comment. [facility] 09/12/2023 COMMENT Alcian blue/PAS stain with matched control is used in the evaluation of the specimen. Immunohistochemistry ([id number]) for P53 and Ki-67 will be performed and results will be reported separately. MICROSCOPIC DESCRIPTION Slides are reviewed. GROSS DESCRIPTION Received in fixative is one container labeled with the patient's name and designated GE junction biopsy. The specimen consists of multiple irregular fragments of light moreno soft tissue that in aggregate measure 1.0 x 0.3 x 0.1 cm. The specimen is totally submitted in one cassette. [facility] 09/11/2023 TC:5 CPT:99713,93398
--- NOTE | 2023-09-11 10:37 | PCM.POST.ANE ---
Anesthesia: Postop Eval I Current Vital Signs Temperature: 97.6 F Pulse Rate: 83 Blood Pressure: 101/68 Respiratory Rate: 16 Pulse Ox: 92 Oxygen Delivery Method: Room Air Assessment Airway patent: Yes Spontaneous unlabored respirations: Yes Mental status: Awake and Calm nausea: No Vomiting: No Anesthesia Complication: No Fluid Hydration Crystalloid volume administer (ml): 400 Total IV fluid infused: 400 Progress Note Anesthesia document: Postop Eval 1 completed: Yes
[2023-09-11 10:38] VITALS: BP 101/68; PULSE 83; RESP 16; TEMP 36.4; O2SAT 92
[2023-09-11 10:40] VITALS: BP 125/93; BP 93/59; PULSE 76; RESP 14; TEMP 36.7; O2SAT 92
--- NOTE | 2023-09-11 10:40 | OP.EGD_ITS ---
Patient Name: Yahir De Luna Procedure Date: 09/11/2023 10:27 AM Date of : 1955 Age: 68 Procedure: Upper GI endoscopy Indications: Follow-up of Tapia's esophagus Providers: Ananth Cho MD Medicines: Monitored Anesthesia Care Patient Profile: This is a 68 year old male. Complications: No immediate complications. Estimated blood loss: Minimal. Procedure: Pre-Anesthesia Assessment: - Prior to the procedure, a History and Physical was performed, and patient medications and allergies were reviewed. The patient's tolerance of previous anesthesia was also reviewed. The risks and benefits of the procedure and the sedation options and risks were discussed with the patient. All questions were answered, and informed consent was obtained. Prior Anticoagulants: The patient has taken no anticoagulant or antiplatelet agents. After reviewing the risks and benefits, the patient was deemed in satisfactory condition to undergo the procedure. After obtaining informed consent, the endoscope was passed under direct vision. Throughout the procedure, the patient's blood pressure, pulse, and oxygen saturations were monitored continuously. The gastroscope was introduced through the mouth, and advanced to the fourth part of duodenum. The upper GI endoscopy was accomplished without difficulty. The patient tolerated the procedure well. Scope In: 10:31:58 AM Scope Out: 10:35:29 AM Total Procedure Duration Time 0 hours 3 minutes 31 seconds Findings: There were esophageal mucosal changes secondary to established short-segment Tapia's disease present at the gastroesophageal junction. The maximum longitudinal extent of these mucosal changes was 2 cm in length. Mucosa was biopsied with a cold forceps for histology in 4 quadrants at the gastroesophageal junction. One specimen bottle was sent to pathology. The stomach was normal. The examined duodenum was normal. Impression: - Esophageal mucosal changes secondary to established short-segment Tapia's disease. Biopsied. Recommendation: - Discharge patient to home. - Resume previous diet. - Continue present medications. - Repeat upper endoscopy in 3 years for surveillance of Tapia's esophagus. Procedure Code(s): --- Professional --- 12636, Esophagogastroduodenoscopy, flexible, transoral; with biopsy, single or multiple Diagnosis Code(s): --- Professional --- K22.70, Tapia's esophagus without dysplasia CPT copyright 2021 [employer] [employer]. All rights reserved. The codes documented in this report are preliminary and upon pipelines laborer review may be revised to meet current compliance requirements. Ananth Cho MD 09/11/2023 10:40:00 AM This report has been signed electronically. Number of Addenda: 0 Note Initiated On: 09/11/2023 10:27 AM
--- NOTE | 2023-09-11 10:40 | OP.CCLET_ITS ---
09/11/2023 Tyshawn Pak Re : Upper GI endoscopy procedure for Yahir Chambers Mellisa This procedure was performed on Monday, September 11, 2023. My impressions and recommendations are as follows: Impressions : - Esophageal mucosal changes secondary to established short-segment Tapia's disease. Biopsied. Recommendations : - Discharge patient to home. - Resume previous diet. - Continue present medications. - Repeat upper endoscopy in 3 years for surveillance of Tapia's esophagus. My findings are described in the full procedure note, which is enclosed. If I can be of further assistance, please feel free to contact me at Doctor phone number(s): , Work: . Sincerely, Ananth Cho MD 09/11/2023 10:40:00 AM This report has been signed electronically.
[2023-09-11 10:45] VITALS: BP 125/93; BP 94/59; PULSE 75; RESP 14; O2SAT 95
[2023-09-11 10:50] VITALS: BP 125/93; BP 95/68; PULSE 69; RESP 16; TEMP 36.4; O2SAT 94
[2023-09-11 11:01] VITALS: BP 125/93
--- NOTE | 2023-09-11 12:42 | POSTOPAN2_ITS ---
Anesthesia Postop Eval I Sum Postop Eval Completion status Anesthesia document: Postop Eval 1 completed: Yes Anesthesia Postop Eval I Summary Anesthesia Postop Eval I Summary: Anesthesia Postop Eval I: Assessment Summary Airway patent Yes 09/11/23 10:38 [email or web address] Spontaneous unlabored Yes 09/11/23 10:38 [employer] respirations Mental status Awake,Calm 09/11/23 10:38 [employer] nausea No 09/11/23 10:38 [employer] Vomiting No 09/11/23 10:38 [employer] Anesthesia Postop Eval I: Fluid Summary Crystalloid volume administer 400 09/11/23 10:38 [employer] (ml) Colloids volume administered ( ml) Blood Product volume administered (ml) Total IV fluid infused 400 09/11/23 10:38 [employer] Anesthesia Postop Eval I: Summary Notes Anesthesia Complication No 09/11/23 10:38 [employer] Anesthesia Complication Comment: Post-operative progress note Anesthesia: Postop Eval II Evaluation Mental status: Awake and Calm Pain Level: 0 nausea: No Vomiting: No Complications Anesthesia Complication: No
--- NOTE | 2023-09-11 12:42 | PCM.POSTANE2 ---
Anesthesia Postop Eval I Sum Postop Eval Completion status Anesthesia document: Postop Eval 1 completed: Yes Anesthesia Postop Eval I Summary Anesthesia Postop Eval I Summary: Anesthesia Postop Eval I: Assessment Summary Airway patent Yes 09/11/23 10:38 [email or web address] Spontaneous unlabored Yes 09/11/23 10:38 [employer] respirations Mental status Awake,Calm 09/11/23 10:38 [employer] nausea No 09/11/23 10:38 [employer] Vomiting No 09/11/23 10:38 [employer] Anesthesia Postop Eval I: Fluid Summary Crystalloid volume administer 400 09/11/23 10:38 [employer] (ml) Colloids volume administered ( ml) Blood Product volume administered (ml) Total IV fluid infused 400 09/11/23 10:38 [employer] Anesthesia Postop Eval I: Summary Notes Anesthesia Complication No 09/11/23 10:38 [employer] Anesthesia Complication Comment: Post-operative progress note Anesthesia: Postop Eval II Evaluation Mental status: Awake and Calm Pain Level: 0 nausea: No Vomiting: No Complications Anesthesia Complication: No
== END 2023-09-11 11:20 | disposition home or self-care (01) ==
LOC: EN 09:19 → AC 09:19
PROVIDERS: PCP Nurse Practitioner Family; Referring Provider Nurse Practitioner Family; Visit Provider Surgery
PROC: 0DJ08ZZ Inspection of Upper Intestinal Tract, Via Natural or Artificial Opening Endoscopic (ICD-10-PCS; CPT 43235; principal; 2023-09-11 10:25)
DX: K22.70 Barrett's esophagus without dysplasia (principal); E78.00 Pure hypercholesterolemia, unspecified; Z86.010 Personal history of colon polyps; K21.9 Gastro-esophageal reflux disease without esophagitis; M19.90 Unspecified osteoarthritis, unspecified site; F17.210 Nicotine dependence, cigarettes, uncomplicated; Z79.899 Other long term (current) drug therapy
CPT/HCPCS: 43239; 88305; 88312; 88341; 88342; J7120; J2405

== ENCOUNTER 2023-09-21 10:23 | Outpatient (RCR) | payer MEDICARE, SELFPAY ==
--- NOTE | 2023-09-21 11:05 | HP.PTEVAL ---
Patient's Visit Information Visit Information Visit Information: MAUREEN KWON is a 68 year old M referred to Physical Therapy by Dr. Maxim Carreno DO with a diagnosis of R radial tunnel syndrome. Date of Evaluation: 09/21/23 Physical Therapist: Alexys Monson, PT, ATC Visit Plan Frequency: 1x/Week Duration: 2 Weeks Plan: Pt was issued and and instructed on radial nerve glide stretches, massage, and icing instructions for a HEP. I will follow up or discharge him in 4 weeks. Subjective Subjective: Pt reports he has had R lateral elbow pain for the last 6 weeks. Pt reports he has had this in the past, but it resolved on its own. 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 Pt reports he is here today just to get exercises to perform at home. Pt reports no sleep difficulty secondary to R arm pain at this time. Pt notes he is R hand dominant. Pt reports no tingling or numbness in R UE, but notes pain with quick movements. Pt reports he had xrays which revealed no significant findings. 0/10 pain at rest, 8/10 pain at worst Pain R lateral elbow: Pain Intensity (Out of 10): 0 Pain Intensity Range: 8 Objective Objective: Neuro: B UE sensation is WNL to light touch. B UE bicipital reflex = 2/3 Palpation: Pt is a little sore on the R wrist extensors near mid forearm region MMT: L wrist extension is 46 #F, R wrist extension 19 #F ROM: L wrist ext= 75, flex= 55 degrees. R wrist flex= 70, ext= 55 degrees Balance/Special Test Scores Quick DASH Score: 34.0900 Goals Goal 1:: I with HEP after one visit Rehabilitation Potential Physical Therapy Diagnosis: Pt has R arm pain, weakness, and limitations with recreational activity secondary to radial tunnel syndrome Rehabilitation Potential: Good Anticipated Interventions Patient/Client Instruction: Educate patient on: Condition and Plan of Care For the Purpose of:: To improve self management Therapeutic Exercise to Include: Flexibilty training and Relaxation training For the Purpose of:: To decrease pain and To improve muscle performance and motor function Text: Thank you for the opportunity to evaluate your patient. For Medicare and Medicare HMO plans, please review the plan of care and approve it. It will need to be FAXED BACK to us at [phone] for Medicare purposes. For Medicare only, by signing this I certify the plan of care. Please let me know if there are questions or concerns regarding this plan of care. Physician Signature: Date:
--- NOTE | 2023-11-20 16:09 | HP.PT.NRP ---
Patient Information Patient Information: MAUREEN KWON was seen in my office for initial evaluation on 09/21/23. The following Plan of Care was established for this patient: POC Established Initial Frequency: 1x/Week Initial Duration: 2 Weeks Anticipated Interventions Patient/Client Instruction: Educate patient on: Condition and Plan of Care For the Purpose of:: To improve self management Therapeutic Exercise to Include: Flexibilty training and Relaxation training For the Purpose of:: To decrease pain and To improve muscle performance and motor function Last Seen Last Seen: This patient was last seen in our office . Pertinent comments regarding their Physical therapy will appear below: Pt was evaluated for R elbow pain on 09/21/23. Pt has not returned through todays date and is discontinued at this time At this point I will be discontinuing this patient from physical therapy. I would be happy to see this patient again in the future if found appropriate by the physician. Thank you! Alexys Monson, PT, ATC Balance/Gait/Functional tests Balance/Special Test Scores Quick DASH Score: 34.0900
== END 2023-09-21 19:00 | disposition home or self-care (01) ==
LOC: PT 10:23
PROVIDERS: PCP Nurse Practitioner Family; Referring Provider Orthopaedic Surgery; Visit Provider Orthopaedic Surgery
DX: G56.31 Lesion of radial nerve, right upper limb (principal)
CPT/HCPCS: 97110; 97161